=== PATIENT | female | born 1995 | race Two or more races ===

== ENCOUNTER 2018-09-30 22:47 | Emergency (ER) | payer MEDICAID ==
[~2018-09-30] VITALS: Ht 157.5 cm; Wt 75.7 kg
[2018-10-01 03:05] VITALS: BP 128/74
[2018-10-01] MEDS ORDERED: BENZOCAINE (DENTAL) 20 % SPRAY 60ML MT ONE (04:30)
[2018-10-01] MEDS ORDERED: cefTRIAXone SOD 1,000 MG VL IM ONE (04:30)
[2018-10-01] MEDS ORDERED: ACETAMINOPHEN/CODEINE#3 (300/30mg) TAB PO ONE (04:30)
[2018-10-01] MEDS ORDERED: methylPREDNISolone SOD SUCC 125 MG/2 ML VL IM ONE (04:30)
== END 2018-10-01 05:15 | disposition home or self-care (01) ==
LOC: ER 22:47
DX: K04.7 Periapical abscess without sinus (principal)
CPT/HCPCS: 96372; 99283; J0696; J2930

== ENCOUNTER 2019-04-03 14:37 | Observation (INO) | payer MEDICAID ==
[~2019-04-03] VITALS: Ht 157.5 cm; Wt 83.9 kg
[2019-04-03 15:08] VITALS: BP 129/62
[2019-04-03 15:26] LABS: Basophils # (auto) 0 uL; Basophils % (auto) 0.1 % (0.0-2.0); Eosinophils # (auto) 0 uL; Eosinophils % (auto) 0.4 % (0.0-7.0); Hematocrit 39.4 % (36.0-46.0); Hemoglobin 13.2 g/dL (12.2-16.2); Lymphocytes # (auto) 1.8 uL; Lymphocytes % (auto) 21.9 % (10.0-50.0); Mean Corpuscular Hemoglobin 29.4 pg (28.0-32.0); Mean Corpuscular Hgb Conc. 33.6 g/dL (32.0-36.0); Mean Corpuscular Volume 87.7 fL (80.0-100.0); Monocytes # (auto) 0.6 uL; Monocytes % (auto) 7.8 % (0.0-12.0); Neutrophils # (auto) 5.7 uL; Neutrophils % (auto) 69.8 % (37.0-80.0); Nucleated Red Blood Cells % 0.1 %; Platelet Count (auto) 262 10^3/uL (140-450); Red Cell Distribution Width 14.5 % (11.8-14.3); White Blood Cell 8.1 10^3/uL (4.4-10.8)
[2019-04-03 15:40] LABS: Albumin 2.6 g/dL (3.4-5.0); BUN/Creatinine Ratio 13.7; Calcium 8.7 mg/dL (8.5-10.1); Potassium 3.7 mmol/L (3.5-5.1)
[2019-04-03 15:43] LABS: Bilirubin, Total 0.5 mg/dL (0.2-1.0); Total Protein 6.7 g/dL (6.4-8.2)
[2019-04-03 17:13] LABS: Urine Bacteria FEW /hpf (None Seen); Urine Blood Negative /uL (Negative); Urine Mucus FEW (None Seen); Urine Specific Gravity 1.008 (1.001-1.035); Urine WBC 27 /hpf (0 - 5)
== END 2019-04-03 19:40 | disposition home or self-care (01) | DRG 566 ==
LOC: ER 14:41 → LDRP 18:02
PROVIDERS: ADMIT Obstetrics & Gynecology; ATTEND Obstetrics & Gynecology
DX: O36.8130 Decreased fetal movements, third trimester, not applicable or unspecified (principal); Z3A.38 38 weeks gestation of pregnancy; Z87.891 Personal history of nicotine dependence
CPT/HCPCS: 36415; 59025; 76805; 76818; 80053; 81001; 81002; 84702; 85025; G0378

== ENCOUNTER 2019-04-26 19:18 | Emergency (ER) | payer MEDICAID ==
[~2019-04-26] VITALS: Ht 157.5 cm; Wt 84.4 kg
[2019-04-26 21:11] LABS: Urine Bacteria NONE SEEN /hpf (None Seen); Urine Blood 1+ /uL (Negative); Urine Specific Gravity 1.006 (1.001-1.035); Urine WBC 23 /hpf (0 - 5)
[2019-04-27 00:05] VITALS: BP 127/76
[2019-04-27] MEDS ORDERED: PHENAZOPYRIDINE HCL 100 MG TAB PO ONE (00:15)
[2019-04-27] MEDS ORDERED: cefTRIAXone SOD 1,000 MG VL IM ONE (00:15)
== END 2019-04-27 00:52 | disposition home or self-care (01) ==
LOC: ER 19:24
DX: O86.20 Urinary tract infection following delivery, unspecified (principal)
CPT/HCPCS: 81001; 96372; 99283; J0696

== ENCOUNTER 2019-09-27 08:26 | Emergency (ER) | payer MEDICAID ==
[~2019-09-27] VITALS: Ht 157.5 cm; Wt 81.6 kg
[2019-09-27 08:33] VITALS: BP 118/61
[2019-09-27] MEDS ORDERED: cefTRIAXone SOD 1,000 MG VL IM ONE (09:15)
[2019-09-27] MEDS ORDERED: ACETAMINOPHEN 500 MG TAB PO ONE (09:15)
== END 2019-09-27 09:47 | disposition home or self-care (01) ==
LOC: ER 08:26
DX: J02.9 Acute pharyngitis, unspecified (principal); G43.909 Migraine, unspecified, not intractable, without status migrainosus; Z90.49 Acquired absence of other specified parts of digestive tract
CPT/HCPCS: 96372; 99283; J0696

== ENCOUNTER 2021-12-06 12:14 | Emergency (ER) | payer MEDICAID ==
[~2021-12-06] VITALS: Ht 160 cm; Wt 79.4 kg
[2021-12-06] MEDS ORDERED: ONDANSETRON ODT 4 MG TAB PO ONE (12:30)
[2021-12-06] MEDS ORDERED: ACETAMINOPHEN 650 mg PER 20.3 mL UD PO ONE (12:30)
[2021-12-06 12:44] LABS: Hemoglobin 13.8 g/dL (12.2-16.2); Mean Corpuscular Volume 85.4 fL (80.0-100.0)
[2021-12-06 12:46] LABS: Basophils # (auto) 0 10 ^3/uL (0-0.2); Basophils % (auto) 0.4 % (0.0-2.0); Eosinophils # (auto) 0.1 10 ^3/uL (0-0.8); Eosinophils % (auto) 1.4 % (0.0-7.0); Hematocrit 39.1 % (36.0-46.0); Lymphocytes # (auto) 3.1 10 ^3/uL (0.4-5.4); Lymphocytes % (auto) 34.6 % (10.0-50.0); Mean Corpuscular Hemoglobin 30.1 pg (28.0-32.0); Mean Corpuscular Hgb Conc. 35.2 g/dL (32.0-36.0); Monocytes # (auto) 0.8 10 ^3/uL (0-1.3); Monocytes % (auto) 8.6 % (0.0-12.0); Nucleated Red Blood Cells % 0.1 %; Red Blood Cells 4.58 10^6/uL (4.0-5.20); Red Cell Distribution Width 12.5 % (11.8-14.3)
[2021-12-06] MEDS ORDERED: HYDROcodone-ACET 5/325MG TAB PO ONE (13:00)
[2021-12-06 13:01] LABS: BUN/Creatinine Ratio 11.1; Calcium 9.8 mg/dL (8.5-10.1); Potassium 3.3 mmol/L (3.5-5.1)
[2021-12-06 13:03] LABS: Bilirubin, Total 0.8 mg/dL (0.2-1.0); Total Protein 8.1 g/dL (6.4-8.2)
[2021-12-06] MEDS ORDERED: IOHEXOL 350 MG/ML 100ML IJ ONE (13:21)
[2021-12-06] MEDS ORDERED: ONDANSETRON HCL 4 MG/2 ML VIAL IV ONE ×2 (13:45→17:15)
[2021-12-06 14:12] LABS: Urine Bacteria NONE SEEN /hpf (None Seen); Urine Blood Negative /uL (Negative); Urine Mucus FEW (None Seen); Urine Specific Gravity 1.026 (1.001-1.035); Urine WBC 29 /hpf (0 - 5)
[2021-12-06] MEDS ORDERED: MORPHINE SULFATE INJ 2 MG/ml SYRG IM ONE (16:00)
[2021-12-06 17:00] VITALS: BP 110/65
[2021-12-06] MEDS ORDERED: ONDANSETRON HCL 4 MG/2 ML VIAL ONE (17:11)
== END 2021-12-06 17:32 | disposition short-term general hospital (02) ==
LOC: ER 12:14
DX: S36.09XA Other injury of spleen, initial encounter (principal); S37.29XA Other injury of bladder, initial encounter; J45.909 Unspecified asthma, uncomplicated; Z90.49 Acquired absence of other specified parts of digestive tract; W18.09XA Striking against other object with subsequent fall, initial encounter; Y93.89 Activity, other specified; Y92.89 Other specified places as the place of occurrence of the external cause; Y99.8 Other external cause status
CPT/HCPCS: 36415; 36430; 71260; 74177; 80053; 81001; 85025; 86850; 86900; 86901; 86920; 96372; 96374; 96376; 99285; J2270; J2405; J7040; P9016; Q0162; Q9967; 99291

== ENCOUNTER 2023-09-03 10:40 | Emergency (ER) | payer MEDICAID ==
[~2023-09-03] VITALS: Ht 160 cm; Wt 74.6 kg
[2023-09-03 11:30] VITALS: BP 97/57; PULSE 83; RESP 18; TEMP 98.1; O2SAT 97
[2023-09-03] MEDS: ONDANSETRON ODT 4 MG TAB PO ONE (11:30)
[2023-09-03 11:50] LABS: Basophils # (auto) 0 10 ^3/uL (0-0.2); Basophils % (auto) 0.3 % (0.0-2.0); Eosinophils # (auto) 0 10 ^3/uL (0-0.8); Eosinophils % (auto) 0.4 % (0.0-7.0); Hematocrit 42.2 % (36.0-46.0); Hemoglobin 14.2 g/dL (12.2-16.2); Lymphocytes # (auto) 1.8 10 ^3/uL (0.4-5.4); Lymphocytes % (auto) 22.8 % (10.0-50.0); Mean Corpuscular Hemoglobin 29.6 pg (28.0-32.0); Mean Corpuscular Hgb Conc. 33.7 g/dL (32.0-36.0); Monocytes # (auto) 0.4 10 ^3/uL (0-1.3); Monocytes % (auto) 4.9 % (0.0-12.0); Neutrophils # (auto) 5.5 10 ^3/uL (1.6-8.6); Neutrophils % (auto) 71.6 % (37.0-80.0); Red Cell Distribution Width 13.1 % (11.8-14.3); White Blood Cell 7.7 10^3/uL (4.4-10.8)
[2023-09-03 12:09] LABS: Alanine Aminotransferase 14 U/L (7-40); Albumin 4.6 g/dL (3.2-4.8); Alkaline Phosphatase 67 U/L (46-116); Anion Gap 5 (5-15); Aspartate Aminotransferase 11 U/L (13-40); BUN/Creatinine Ratio 12.5 (10.0-20.0); Bilirubin, Direct 0.4 mg/dL (<0.3); Bilirubin, Total 1.4 mg/dL (0.2-1.0); Blood Urea Nitrogen 8 mg/dL (9-23); Calcium 9.9 mg/dL (8.5-10.1); Carbon Dioxide 28 mmol/L (20-30); Chloride 108 mmol/L (98-107); Glucose 87 mg/dL (74-106); Potassium 4.4 mmol/L (3.5-5.1); Sodium 141 mmol/L (136-145); Total Protein 7.1 g/dL (5.7-8.2)
[2023-09-03 12:18] LABS: Lipase 26 U/L (12-53)
[2023-09-03 15:03] LABS: Urine Bacteria NONE SEEN /hpf (None Seen); Urine Blood Negative /uL (Negative); Urine Budding Yeast MODERATE /hpf (None Seen); Urine Clarity HAZY (Clear); Urine Color Colorless (Yellow); Urine Protein, UAD Negative (Negative); Urine Specific Gravity 1.005 (1.001-1.035); Urine Urobilinogen Normal (Negative); Urine WBC 9 /hpf (0 - 5); Urine pH 5.5 (5.0-8.0)
[2023-09-03] MEDS ORDERED: NITR-87 PO (16:46)
[2023-09-03] MEDS ORDERED: ZOFR4T PO (16:46)
== END 2023-09-03 17:06 | disposition home or self-care (01) ==
LOC: ER 10:40
DX: K80.50 Calculus of bile duct without cholangitis or cholecystitis without obstruction (principal); R10.2 Pelvic and perineal pain; N39.0 Urinary tract infection, site not specified; J45.909 Unspecified asthma, uncomplicated; F12.10 Cannabis abuse, uncomplicated; Z90.49 Acquired absence of other specified parts of digestive tract
CPT/HCPCS: 36415; 74176; 74181; 76705; 80048; 80076; 81001; 83690; 84702; 85025; 99284; Q0162